=== PATIENT | female | born 1965 | race Caucasian/White ===

== ENCOUNTER 2017-02-06 06:43 | Emergency (ER) | payer BC ==
[~2017-02-06 06:43] MED LIST: ALEVE220 MG PO; B12250T PO; LORT7 PO; MINIVELLE1 EACH TOP; MULTIPLE VIT PO; NO HOME MEDS; VITAMIN B-121000 MC1 IM; VITAMIN D1000 UNI1 PO
== END 2017-02-06 07:00 | disposition home or self-care (01) ==
LOC: ER 06:43
DX: S80.862A Insect bite (nonvenomous), left lower leg, initial encounter (principal); L03.116 Cellulitis of left lower limb; J45.909 Unspecified asthma, uncomplicated; I10 Essential (primary) hypertension; E66.01 Morbid (severe) obesity due to excess calories; Z87.891 Personal history of nicotine dependence; Z88.0 Allergy status to penicillin; Z79.899 Other long term (current) drug therapy; W57.XXXA Bitten or stung by nonvenomous insect and other nonvenomous arthropods, initial encounter
CPT/HCPCS: 90714; 99283

== ENCOUNTER 2017-02-08 02:31 | Emergency (ER) | payer BC ==
[2017-02-09 15:55] LABS: LYME AB SCREEN RESULT Negative (NEG)
== END 2017-02-08 04:31 | disposition home or self-care (01) ==
LOC: ER 02:31
PROVIDERS: Specialist
DX: L03.116 Cellulitis of left lower limb (principal); E78.5 Hyperlipidemia, unspecified; Z88.0 Allergy status to penicillin; Z79.899 Other long term (current) drug therapy
CPT/HCPCS: 86618; 99283; A9270-GY